=== PATIENT | female | born 1975 | race Caucasian/White ===

== ENCOUNTER 2017-05-30 05:23 | Observation (INO) | payer BC ==
[2017-05-28 22:50] LABS: HEMATOCRIT 41.7 % (36.0-48.0); HEMOGLOBIN 13.4 g/dL (12.0-16.0)
[~2017-05-30] VITALS: Ht 172.7 cm; Wt 90.7 kg
--- NOTE | ~2017-05-30 | OP ---
Record Of Operation [facility] [address] [place]. [address] NAME: PASQUALE CALERO : 75 STATUS : DIS IN PAT#: [id number] AGE: 41 ADM/REG DATE : 05/30/17 MR#: [id number] REPORT SERV DATE: 05/31/17 DICTATED BY: COLEMAN RICCI II DATE: 05/31/17 REPORT STATUS : Draft TRANSCRIBED BY: MODMarichuy DATE: 05/31/17 DATE OF PROCEDURE: 05/30/2017 PREOPERATIVE DIAGNOSES: 1. History of L3-4 fusion. 2. Heterotopic ossification, L3-4, with persistent radiculopathy, right lower extremity. 3. 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 POSTOPERATIVE DIAGNOSES: 1. History of L3-4 fusion. 2. Heterotopic ossification, L3-4, with persistent radiculopathy, right lower extremity. 3. 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 PROCEDURES: 1. Revision facetectomy for decompression of the L3 and L4 nerve roots. 2. Use of the microscope and stereotactic spinal imaging. FLUIDS: 1600 mL LR. ESTIMATED BLOOD LOSS: 30 mL. DRAINS: One drain. COMPLICATIONS: None. PREOPERATIVE HISTORY: This is a friendly 41-year-old female, very well known to me through the years. Her history is fairly well chronicled in the past operative notes as well as office notes. However, in summary, more recently she has been having significant right lower extremity pain. Her chronic back pain was made some better with rather more recent fusion. However, her leg pain has now been her primary complaint. She reports having done better early on with the leg pain, but now the pain is returning. It is simply severe in her opinion. Unfortunately, her EMG nerve conduction study did not show any hard and fast evidence. Her imaging was suggestive, but not conclusive of heterotopic ossification with recurrent stenosis. However, all of this coupled with her dermatomal description, I felt that the most likely scenario was persistent leg pain secondary to persistent stenosis. In an effort to avoid surgery, we had tried a spinal column stimulator trial. This was unsuccessful also. Unfortunately, her pain is so severe that she has had to apply for disability. She overall has continued to work for many years and been productive as a housewife and has had the ability to workout through the years. However, in these last four to six months she has been unable to work or workout. She was bagging me to try and find a way to help her. I felt that surgery stood a reasonable chance of helping her, but I discussed with her my concerns that the surgery could leave her without any positive results. I discussed with her that the fusion appeared to be taking well and healing overall. I discussed with her that the surgery would be a minimally invasive decompression to remove heterotopic bone and essentially explore the area. She voiced understanding. She understood the risks of the surgery. I discussed further more common risks such as Record Of Operation [facility] [address] [place]. [address] NAME: PASQUALE CALERO : 75 STATUS : DIS IN PAT#: [id number] AGE: 41 ADM/REG DATE : 05/30/17 MR#: [id number] REPORT SERV DATE: 05/31/17 DICTATED BY: COLEMAN RICCI II DATE: 05/31/17 REPORT STATUS : Draft TRANSCRIBED BY: MONTY DATE: 05/31/17 bleeding, infections, spinal fluid leaks. We discussed the increased risk of this given the revision nature of the surgery. We also discussed the chance of pulmonary embolus. DESCRIPTION OF PROCEDURE: After informed consent was obtained, the patient was brought to the operating room at her request and general anesthesia was achieved. She was placed in the prone position and the back was prepped and draped in a sterile fashion. The iliac crest on the left was chosen for placement of the iliac crest stereotactic pin. The intraoperative CT scan was completed and stereotactic spinal imaging was performed throughout the surgery. Next, the minimally invasive incision was performed on the right using stereotactic guidance and the minimally invasive quadrant retractor was placed. The microscope was now brought into place and under microscopic visualization the previous hardware was noted at L3-4. There was a significant amount of scar. There was no evidence of infection in her spinal fluid. Overall, at this point, we then used the stereotactic imaging extensively to identify [place] lamina and the previous laminotomy and laminectomy site. At this point, we were able to now use the high-speed bur to remove additional bone from the spinolaminar junction. This then allowed identification of the dura. At this point, we then worked laterally back from the central canal to then identify the scar around the dura from the previous decompression. Interestingly, at this point, we did encounter significant stenosis compressing the L4 nerve root. At this point, we then were able to use the curved curettes and the elevators to remove scar and separate scar from the dura. Ultimately, we were able to then remove some of the heterotopic bone, which had formed back over the L4 nerve root in and around the previous laminectomy site. Decompression appeared to be fairly significant and severe. We were able to then eventually work back to the pedicle, which had been previously our landmark. We were able to find this landmark yet again and identify and decompress the L4 nerve root along the medial aspect of the pedicle as well as around the inferomedial aspect of the pedicle. At this point, I was pleased with the decompression of the L4 nerve root. However, there still appeared to be extensive bone still compressing just cranial to the L4 nerve root. We were then able to continue the decompression in a more cranial manner such that I can then use the short and long-tipped ball probes to palpate along the L3 nerve root. There appeared to be again recurrence of bone over this area. We used the [place] rongeurs, the curved curettes to work back and remove additional pars. At this point, again it appeared the L4 nerve root had also been compromised in the foramen from some heterotopic bone. This bone was also removed and overall at this point I was pleased with the L3 nerve root revision decompression. Again, please note, both nerve roots required individual attention and separate decompression. At this point, the wound was irrigated followed by confirmation of hemostasis with the exception of some mild cancellous bone bleeding. Fortunately, we did not encounter any CSF leaks. The area was now closed in a standard manner over a drain and standard dressings were applied. The patient was extubated and transferred to PACU in stable condition. I then spoke extensively with her boyfriend, Sean. I discussed with him the findings, which I was pleased to find insofar as I was hopeful that removal of this amount of bone Record Of Operation [facility] [address] [facility] [address] [place]. [address] NAME: PASQUALE CALERO : 75 STATUS : DIS IN PAT#: [id number] AGE: 41 ADM/REG DATE : 05/30/17 MR#: [id number] REPORT SERV DATE: 05/31/17 DICTATED BY: COLEMAN RICCI II DATE: 05/31/17 REPORT STATUS : Draft TRANSCRIBED BY: MONTY DATE: 05/31/17 should hopefully yield her some improvement in her radiculopathy. ARRON/MONTY Coleman Ricci II, M.D. / [id number] CC: Conrado Ramirez II, MICHAEL F
[~2017-05-30 05:23] MED LIST: ADVIL PO; ALLEGRA180 PO; BUSPAR15 M1 PO; DSS PO; EFFEX75 PO; EFFEXOR XR150 MG PO; ETODOLAC400 MG OR; ETODOLAC400 MG PO; LEVOTHROID125 MCG PO; LEVOTHYROXIN137 MCG PO; LYRICA150 MG PO; LYRICA75 PO; MEDROLPAK4 PO; METHOC500B PO; METHOC750B PO; MOVANTIK25 MG PO; MSCONTIN PO; NEUR600 PO; NEUR800 PO; OXYCON10 PO; OXYCONTIN15 MG PO; ROXICODONE15 MG PO; SYN125 PO; SYNTHROID137 MCG PO; T PO; V2 PO; V5 PO
[2017-05-31] MEDS ORDERED: ROXICODONE15 MG PO (12:20)
[2017-05-31] MEDS ORDERED: MSCONTIN PO (12:20)
[2017-05-31] MEDS ORDERED: BACTRONASA NAS (12:20)
== END 2017-05-31 17:57 | disposition home or self-care (01) ==
LOC: ENRESERVDT → ENRESERV → ENRESERVTM → SDC 05:23 → 3SO 10:41 → SDC 11:15 → 3SO 05-31 17:57
PROVIDERS: Orthopaedic Surgery
PROC: 01NB0ZZ Release Lumbar Nerve, Open Approach (ICD-10-PCS; principal; 2017-05-30 05:45)
DX: M48.06 Spinal stenosis, lumbar region (principal); M54.16 Radiculopathy, lumbar region; M61.9 Calcification and ossification of muscle, unspecified; E03.9 Hypothyroidism, unspecified; F41.9 Anxiety disorder, unspecified; G89.29 Other chronic pain; M54.5 Low back pain; Z90.49 Acquired absence of other specified parts of digestive tract; Z98.1 Arthrodesis status; Z88.5 Allergy status to narcotic agent; Z88.8 Allergy status to other drugs, medicaments and biological substances; Z98.84 Bariatric surgery status; Z90.710 Acquired absence of both cervix and uterus; Z79.899 Other long term (current) drug therapy; Z98.890 Other specified postprocedural states
CPT/HCPCS: 85014; 85018; 88304; 88311; 96374; 96375; 96376; A9270-GY; G0378; J0690; J1885; J2250; J2270; J2405; J2550; J2710; J3010; J3475